=== PATIENT | male | born 1945 | race Caucasian/White ===

== ENCOUNTER → 2016-11-15 | Day surgery (SDC) | payer OTHER ==
[~2016-11-15] VITALS: Ht 182.9 cm; Wt 81.1 kg
[~2016-11-15] MED LIST: *ENALAPRILAT 1.25 MG/ML VIAL PERIprocedural Use ONLY ONE; *morphine SULFATE 8 MG/ML PERIprocedure ONLY ONE; ASPI81CH CHEW; BELLADONNA ALKALOIDS/OPIUM 60 MG SUPP RECTAL ONE; CHLORHEXIDINE GLUCONATE 2 % 1 PACK (2 CLOTHS) TOPICAL PRN; FAMOTIDINE 20 MG/2 ML VIAL ONE; FINA5TAB2 PO; GLYCOPYRROLATE 0.2 MG/ML VIAL IV ONE; GLYCOPYRROLATE 0.2 MG/ML VIAL ONE; INSULIN HUMAN REGULAR 1,000 UNITS/10 ML VIAL SQ PRN; LACTATED RINGER'S 1000 ML INJ 1,000 ML IV ONE; LACTATED RINGER'S 1000 ML IV PRN; METOPROLOL TARTRATE 25 MG TAB PO PRN; MIDAZOLAM HCL 2 MG/2 ML VIAL ONE; MULT-142 PO; NEOSTIGMINE 3 MG/3 ML SYR IV ONE; OMEP20TA PO; ONDANSETRON HCL 4 MG/2 ML VIAL IV PUSH ONE; POVIDONE IODINE 5% (ANTISEPSIS KIT) 4 APPLICATIONS EACH NARE PRN; PROP20TA3 PO; PROPOFOL 200 MG/20 ML AMP IV ONE; PSYLPOW4 PO; RAPA8CAP PO; SIMV80TA PO; SODIUM CHLORID 0.9% 500 ML IV PRN; TYLE325T PO; VITA100064 PO; ceFAZolin 2 GM PREMIX 50 ML IV SCH; ePHEDrine/NS 25 MG/5 ML SYR IV ONE; fentaNYL CITRATE 250 MCG/5 ML AMP ONE
[2016-11-15 13:15] LABS: PROTHROMBIN TIME - PATIENT 11.2 SEC (9.8-11.6)
[2016-11-15 18:00] VITALS: BP 161/81; PULSE 47; RESP 16; TEMP 97.8; O2SAT 99
--- NOTE | 2016-11-16 11:13 | EKG ---
Date Performed: 11/15/2016 Time Performed: 13:06:15 PTAGE: 71 years EKG: SINUS BRADYCARDIA BORDERLINE ECG NO PREVIOUS TRACING DOCTOR: Perry Tolliver Interpretating Date/Time 11/16/2016 11:12:40
--- NOTE | 2016-11-17 22:23 | MP ---
cc: BUZZ SANDHU MD DATE OF SURGERY 11/15/16 PREOPERATIVE DIAGNOSIS BPH with severe [place] refractory to medical therapy. POSTOPERATIVE DIAGNOSIS BPH with severe [place] refractory to medical therapy. PROCEDURE PERFORMED 1. Cystourethroscopy 2. Green light TURP with [place] fiber SURGEON Godwin Sandhu MD ANESTHESIA General COMPLICATIONS None. PREOPERATIVE ANTIBIOTICS Ancef 1 gram IV DRAINS 20 Russian coude catheter to gravity drainage. SPECIMEN None BLOOD LOSS Less than 10 mL DISPOSITION Stable to recovery INDICATIONS The patient is a 71-year-old male with history of BPH with severe [place] who was initially seen in the office to discuss surgical options for his lower urinary tract symptoms. His brother had a green light TURP approximately three months ago and was very satisfied. He inquired about having the green light done for himself since he continued to have severe urinary tract symptoms, despite medical therapy. He decided to proceed with the green light TURP. Alternative treatment options were discussed including TURP versus urolith. The risks, benefits, alternatives of each one were discussed. However, he elected to move forward with the green light TURP. After risks, benefits and alternatives were explained to the patient including the risk of urinary incontinence, erectile dysfunction, persistent urinary symptoms, he elected to proceed. Informed consent was obtained. PROCEDURE IN DETAIL Patient was properly identified, brought back to the cystoscopy suite where he was laid supine on cystoscopy table. Appropriate time-out was performed. Under the direction of anesthesiology, the patient was intubated and induced under general aesthetic. Preoperative antibiotics in the form of Ancef 1 gram IV was given on hour prior to start of procedure. The patient was then placed in dorsolithotomy position, prepped and draped in normal sterile surgical fashion. Using a visual obturator and the 22-Russian continuous sheath, I carefully passed the resectoscope into the patient's bladder per urethra without any difficulty. He had a very severely trabeculated bladder. Both orifices were identified and appeared in normal anatomic location. No bladder tumors or stones were seen. The patient had a small median lobe. As I retracted back into the prostatic fossa, he had moderate hyperplasia and approximately a 3 cm long prostate. I began by taken down the median lobe to the level of the bladder neck. I then vaporized the adenoma between the 5, 1 o'clock and the 7 and 11 o'clock positions on each side all the way back to the verumontanum. I did not go past the verumontanum. The adenopathy was completely vaporized down to the capsule on each side which completely opened up his prostatic channel. The inflow was then shut off. There was minimal bleeding seen. There was some oozing from trauma of the scope and this was controlled with coag on the laser fiber. Both ureteral orifice were checked at the end of the case and appear to be widely patent. The scope was then removed. A 20 Russian coude catheter was then placed under sterile technique. Clear yellow urine returned. This concluded the procedure. The patient was extubated and sent to recovery in stable condition. He will then be discharged home per PACU protocol with the catheter in place. MD LLUVIA Sandoval/ /3:11 PM /10:03 PM
== END | disposition home or self-care (01) ==
LOC: HSDC 11:30
PROVIDERS: ATTEND Urology
DX: N40.1 Benign prostatic hyperplasia with lower urinary tract symptoms (principal); R39.12 Poor urinary stream; R39.16 Straining to void; R39.14 Feeling of incomplete bladder emptying; R35.1 Nocturia; I51.9 Heart disease, unspecified; M19.90 Unspecified osteoarthritis, unspecified site; Z01.818 Encounter for other preprocedural examination; Z87.440 Personal history of urinary (tract) infections
CPT/HCPCS: 00914; 52648; 85610; 93005; J2250; J2270; J2405; J2710; J3010; J7120